=== PATIENT | female | born 1955 | race Caucasian/White ===

== ENCOUNTER → 2016-11-22 | Outpatient (CLI) | payer OTHER ==
[~2016-11-22] VITALS: Ht 170.2 cm; Wt 72.5 kg
[~2016-11-22] MED LIST: CITA20TA4 PO; ESTE1TAB5 PO; INSULIN HUMAN REGULAR 1,000 UNITS/10 ML VIAL SQ PRN; LACTATED RINGER'S 1000 ML IV SCH; METOPROLOL TARTRATE 25 MG TAB PO PRN; PROPOFOL 200 MG/20 ML AMP IV ONE; RANI150T PO; SODIUM CHLORID 0.9% 500 ML IV SCH; ULTR50TA5 PO
[2016-11-22 06:45] VITALS: BP 139/74; PULSE 58; RESP 20; TEMP 97.8; O2SAT 100
[2016-11-22 07:53] VITALS: TEMP 97.4
[2016-11-22 08:05] VITALS: BP 96/54; PULSE 58; RESP 18; O2SAT 100
--- NOTE | 2016-11-22 09:30 | EKG ---
Date Performed: 11/22/2016 Time Performed: 07:03:21 PTAGE: 61 years EKG: SINUS BRADYCARDIA INCOMPLETE RIGHT BUNDLE BRANCH BLOCK BORDERLINE ECG PREVIOUS TRACING : 01/17/2013 09.53 DOCTOR: Elmer Brooks Interpretating Date/Time 11/22/2016 09:29:58
== END ==
LOC: HEND 06:01 → EDSTATUS 07:30
PROVIDERS: ATTEND Colon & Rectal Surgery
DX: Z12.11 Encounter for screening for malignant neoplasm of colon (principal); R94.31 Abnormal electrocardiogram [ECG] [EKG]
CPT/HCPCS: 00810; 45378; 93005; J7120

== ENCOUNTER 2017-03-26 15:54 | Emergency (ER) | payer OTHER ==
[~2017-03-26] VITALS: Ht 172.7 cm; Wt 70.0 kg
[~2017-03-26 15:54] MED LIST changes: -INSULIN HUMAN REGULAR 1,000 UNITS/10 ML VIAL SQ PRN; -LACTATED RINGER'S 1000 ML IV SCH; -METOPROLOL TARTRATE 25 MG TAB PO PRN; -PROPOFOL 200 MG/20 ML AMP IV ONE; -SODIUM CHLORID 0.9% 500 ML IV SCH
[2017-03-26 15:56] VITALS: BP 138/71; PULSE 81; RESP 14; TEMP 97.8; O2SAT 98
--- NOTE | 2017-03-26 16:25 | PD ---
HPI Chief Complaint: Skin Problem Time Seen by Provider: 16:05 Travel History International Travel<30 days: No Contact w/Intl Traveler<30days: No Traveled to known affect area: No History of Present Illness HPI 61-year-old female presents the emergency department with injury to the right lateral pinky finger. Patient states she sustained an avulsion type laceration to the right distal lateral pinky 3 days prior to this visit. Patient states she's been changing the dressing daily and having difficulty controlling the bleeding. States has become somewhat tender, but she denies significant erythema or fever or chills. She is up-to-date on her tetanus. She is mainly here for a dressing that will contain the bleeding. She has no known drug allergies. PFSH Past Medical History Cancer: No Cardiovascular Problems: No Diabetes: No Endocrine: No Genitourinary: No Hepatitis: No Hiatal Hernia: No Immune Disorder: No Musculoskeletal: Yes (bilat shoulder adhesive encapsulitits) Neurologic: No Psychiatric: Yes (CLAUSTROPHOBIC) Reproductive: No Respiratory: Yes (hx of sinus infection) Thyroid Disease: No Past Surgical History Abdominal Surgery: No AICD: No Cardiac Surgery: No Ear Surgery: No Endocrine Surgery: No Eye Surgery: No Genitourinary Surgery: No Gynecologic Surgery: Yes (hysterectomy) Joint Replacement: No Oral Surgery: Yes (gum surgery) Pacemaker: No Thoracic Surgery: Yes (right breast bx-benign) Social History Alcohol Use: No Tobacco Use: No Substance Use: No Allergies-Medications (Allergen,Severity, Reaction): Coded Allergies: No Known Allergies (Verified , 11/21/16) Reported Meds & Prescriptions Reported Meds & Active Scripts Active Reported Ultram (Tramadol HCl) 50 Mg Tab 50 Mg PO DAILY PRN Citalopram (Citalopram Hydrobromide) 20 Mg Tab 20 Mg PO DAILY Ranitidine (Ranitidine HCl) 150 Mg Tab 150 Mg PO DAILY Esterified Estrogens-Methyltestosterone 1.25-2.5 Mg Tab 1 Tab PO DAILY Review of Systems General / Constitutional: No: Fever Eyes: No: Visual changes HENT: No: Headaches Cardiovascular: No: Chest Pain or Discomfort Respiratory: No: Shortness of Breath Gastrointestinal: No: Abdominal Pain Genitourinary: No: Dysuria Musculoskeletal: No: Pain Skin: No Rash Neurologic: No: Weakness Psychiatric: No: Depression Endocrine: No: Polydipsia Hematologic/Lymphatic: No: Easy Bruising Physical Exam Narrative GENERAL: Patient appears in no acute distress. SKIN: Warm and dry. Normal color. Normal turgor. Patient has a 1 cm by half centimeter avulsion type laceration to the lateral distal right pinky. There is no involvement of the deep tissues or tendons. Bleeding is currently controlled, but patient states starts bleeding with any type of pressure. HEAD: Atraumatic. Normocephalic. EYES: Pupils equal and round. No scleral icterus. No injection or drainage. ENT: No nasal bleeding or discharge. Mucous membranes pink and moist. Pharynx is clear. NECK: Trachea midline. Supple. CARDIOVASCULAR: Regular rate and rhythm. RESPIRATORY: No accessory muscle use. Clear to auscultation. Breath sounds equal bilaterally. MUSCULOSKELETAL: Extremities without clubbing, cyanosis, or edema. No obvious deformities. NEUROLOGICAL: Awake and alert. No obvious cranial nerve deficits. Motor grossly within normal limits. Five out of 5 muscle strength in the arms and legs. Normal speech. PSYCHIATRIC: Appropriate mood and affect; insight and judgment normal. Data Data Last Documented VS Vital Signs Date Time Temp Pulse Resp B/P Pulse Ox O2 Delivery O2 Flow Rate FiO2 03/26/17 15:56 97.8 81 14 138/71 98 MDM Medical Decision Making Medical Screen Exam Complete: Yes Emergency Medical Condition: Yes Differential Diagnosis Bleeding from avulsed tissue. Laceration. Need for pressure dressing. Narrative Course Wound is reevaluated, and MaxSorb dressing and Xeroform gauze placed with Jyoti on top. Patient is instructed to leave the dressing in place for as long as is kept clean and dry. Patient change the outer Jyoti dressing as needed. The inner bandage will come off as the wound heals. Patient is given Keflex 500 mg 3 times a day 5 days. Patient should follow-up with her primary care physician or return to emergency department as needed. Diagnosis Primary Impression: Soft tissue avulsion Referrals: Primary Care Physician Patient Instructions: General Instructions, Laceration Without Closure (ED) Additional Instructions: Wound is reevaluated, and MaxSorb dressing and Xeroform gauze placed with Jyoti on top. Patient is instructed to leave the dressing in place for as long as is kept clean and dry. Patient change the outer Jyoti dressing as needed. The inner bandage will come off as the wound heals. Patient is given Keflex 500 mg 3 times a day 5 days. Patient should follow-up with her primary care physician or return to emergency department as needed. Med/Other Pt SpecificInfo: Prescription(s) given, Wound Care Disposition: 01 DISCHARGE HOME Condition: Stable Nick Fountain Mar 26, 2017 16:25
[2017-03-26] MEDS ORDERED: CEPH500C PO (16:26)
== END 2017-03-26 16:45 | disposition home or self-care (01) ==
LOC: NEPK 15:54
DX: S61.216A Laceration without foreign body of right little finger without damage to nail, initial encounter (principal); X58.XXXA Exposure to other specified factors, initial encounter; Y93.9 Activity, unspecified; Y92.9 Unspecified place or not applicable; Y99.9 Unspecified external cause status
CPT/HCPCS: 99283

== ENCOUNTER → 2017-06-08 | Outpatient (CLI) | payer OTHER ==
[~2017-06-08] MED LIST changes: +CEPH500C PO
[2017-06-08 09:06] LABS: AUTOMATED NEUTROPHIL # 2.7 TH/MM3 (1.8-7.7); BASOPHIL % 0.9 % (0.0-2.0); EOSINOPHIL # 0.2 TH/MM3 (0-0.4); EOSINOPHIL % 3.9 % (0.0-4.0); HEMATOCRIT 40.7 % (35.0-46.0); HEMO FLAGS DIFF FINAL; LYMPH % 33.6 % (9.0-44.0); LYMPHOCYTE # 1.7 TH/MM3 (1.0-4.8); MEAN CELL VOLUME 92.3 FL (80.0-100.0); MEAN CORPUSCULAR HEMOGLOBIN 31.4 PG (27.0-34.0); MONO % 8.9 % (0.0-8.0); NEUT % 52.7 % (16.0-70.0); PLATELET COUNT 253 TH/MM3 (150-450); RED BLOOD COUNT 4.41 MIL/MM3 (4.00-5.30); RED CELL DISTRIBUTION WIDTH 12.8 % (11.6-17.2); WHITE BLOOD COUNT 5.2 TH/MM3 (4.0-11.0)
[2017-06-08 09:26] LABS: ALKALINE PHOSPHATASE 56 U/L (45-117); ALT (GPT) 18 U/L (10-53); ANION GAP 5 MEQ/L (5-15); AST (GOT) 17 U/L (15-37); BICARBONATE 27.6 MEQ/L (21.0-32.0); BLOOD UREA NITROGEN 15 MG/DL (7-18); CHLORIDE 91 MEQ/L (98-107); GLOMERULAR FILTRATION RATE 68 ML/MIN (>89); GLUCOSE,FASTING 80 MG/DL (74-99); HDL CHOLESTEROL 57.5 MG/DL (40.0-60.0); LDL CHOLESTEROL 95 MG/DL (0-99); POTASSIUM 3.7 MEQ/L (3.5-5.1); TOTAL BILIRUBIN ADULT 0.6 MG/DL (0.2-1.0)
[2017-06-08 09:31] LABS: SODIUM (NA) 124 MEQ/L (136-145)
== END ==
LOC: OLAB 07:37
PROVIDERS: ATTEND Family Medicine
DX: Z00.00 Encounter for general adult medical examination without abnormal findings (principal)
CPT/HCPCS: 80053; 80061; 80074; 82306; 84443; 85025

== ENCOUNTER → 2017-06-11 | Outpatient (CLI) | payer OTHER | LOC: OLAB 08:32 | PROVIDERS: ATTEND Family Medicine | DX: R89.9 Unspecified abnormal finding in specimens from other organs, systems and tissues (principal) | CPT/HCPCS: 84295 ==